=== PATIENT | female | born 1970 | race Caucasian/White ===

== ENCOUNTER → 2020-12-08 | Outpatient (CLI) | payer BC ==
--- NOTE | 2020-12-08 11:20 | Diagnostic Imaging Report ---
INDICATION: Fall, right knee pain. Time of exam: 10:35 AM 3 views of the right knee were obtained. Alignment is normal. Joint spaces are well maintained. Articular surfaces are smooth. No fracture, dislocation or effusion is identified. IMPRESSION: No acute bony abnormality is detected. Dictated by: Dictated on workstation # [id number]
== END ==
LOC: RAD FS 10:22
PROVIDERS: ATTEND Nurse Practitioner
DX: M25.561 Pain in right knee (principal); W19.XXXA Unspecified fall, initial encounter
CPT/HCPCS: 73562

== ENCOUNTER 2021-03-07 21:22 | Emergency (ER) | payer BC ==
[~2021-03-07] VITALS: Ht 160 cm; Wt 59.0 kg
[2021-03-07] MEDS ORDERED: AUGMENTIN 875 MG TAB (AMOXICILLIN/CLAVULANATE) PO STA (22:10)
[2021-03-07] MEDS ORDERED: LIDOCAINE 1% INJ 20 ML 20 ML VIAL INJ STA (22:10)
--- NOTE | 2021-03-07 22:19 | ED Lower Extremity ---
General Chief Complaint: Bite-Animal/Human/Insect Stated Complaint: DOG BITE ON LEG Nursing Triage Note: Pt is awake et alert, brought from waiting room to ER1 per wheelchair. Pt reports that she was bitten by a dog while out on a walk. Pt has open laceration to right ankle. Pressure help with gauze to stop bleeding. Wound irrigated with sterile saline. Source: patient History of Present Illness Date Seen by Provider: Mar 07, 2021 Time Seen by Provider: 21:40 Initial Comments 50 yo female presents with complaint of dog bite to her right lateral leg. She states that she was walking through the [place] area and a dog was barking at her and then came up and bit her leg. She states she is not sure when her last tetanus booster is but is refusing update tonight. She reports that she would want her wound cleaned and would like to just have had a strength butterfly tape applied. She denies allergies to medicines. She has not had problems with that area of the leg before. She has bleeding controlled with pressure. Onset: just prior to arrival Severity: moderate Pain/Injury Location: right leg Method of Injury: other (dog bite) Modifying Factors: Worse With Movement Allergies and Home Medications Allergies Coded Allergies: No Known Drug Allergies (Unverified , 03/07/21) Home Medications Amoxicillin/Potassium Clav 1 Each Tablet, 1 EACH PO BID Prescribed by: KALLI CAMILO on 03/07/21 6187 Patient Home Medication List Home Medication List Reviewed: Yes Review of Systems Constitutional: No chills, No fever EENTM: no symptoms reported Respiratory: no symptoms reported Cardiovascular: no symptoms reported Gastrointestinal: no symptoms reported Genitourinary: no symptoms reported Musculoskeletal: see HPI Skin: see HPI Psychiatric/Neurological: Denies Numbness, Denies Tingling Past Hdubqds-Luewkz-Rogcdg Hx Patient Social History Tobacco Use?: No Smoking Status: Unknown if Ever Smoked Substance use?: No Alcohol Use?: Yes Alcohol Frequency: Rarely Pt feels they are or have been: No Immunizations Up To Date Influenza Vaccine Up-to-Date: No; Not Current First/Initial COVID19 Vaccinat: December 2020 COVID19 Vaccine [employer]acht [employer]: Smadex Physical Exam Vital Signs Vital Signs - First Documented 03/07/21 21:26 Temp 37.6 Pulse 116 Resp 28 B/P (MAP) 136/78 (97) Pulse Ox 95 O2 Delivery Room Air Capillary Refill : Height, Weight, BMI Height: '" Weight: lbs. oz. kg; 23.00 BMI Method: General Appearance: other (anxious and hyperactive) Cardiovascular: normal peripheral pulses Legs: right leg pain, right leg soft tissue tenderness, right leg other (gaping jagged laceration to right lateral lower leg. bleeding controlled with pressure. ) Neurologic/Psychiatric: alert, oriented x 3 Skin: normal color, warm/dry Procedures/Interventions Wound Location: Lower Extremities (lateral right leg 4.6 x 2.2 cm gaping irregular wound) Wound Length (cm): 4.6 Wound's Depth, Shape: irregular, contused tissue, sub Q Wound Explored: contaminated Irrigated w/ Saline (ccs): 500 Betadine Prep?: Yes Anesthesia: 1% Lidocaine Volume Anesthetic (ccs): 10 Suture: Ethlion Suture Size: 3-0 Number of Sutures: 3 Layer Closure?: 1 Sterile Dressing Applied?: Yes Progress After obtaining verbal consent from the patient the wound was anesthetized with 1% plain lidocaine. The 500 mils of saline with Betadine were irrigated through the wound. Then the wound edges were loosely approximated with 3 simple interrupted retaining stitches using 3-0 Ethilon. Patient tolerated procedure well without any immediate complication. Started on Augmentin for wound prophylaxis. Pt refused tetanus booster for now so advised she has up to 72 hours from wound to have that updated. Advised to have stitches removed in 7 to 10 days. Counseled on return and follow-up precautions. Progress/Results/Core Measures Results/Orders My Orders Orders - KALLI CAMILO MD Lidocaine 1% Inj 20 Ml (Xylocaine 1% Inj (03/07/21 22:10) Amoxicillin/Clavulanate Tablet (Augmenti (03/07/21 22:10) Wound Dressing-Ed (03/07/21 22:10) Suture Set At Bedside (03/07/21 22:10) Ice: Apply To Affected Area (03/07/21 23:21) Vital Signs/I&O 03/07/21 03/07/21 21:26 23:28 Temp 37.6 37.2 Pulse 116 116 Resp 28 28 B/P (MAP) 136/78 (97) 136/78 (97) Pulse Ox 95 95 O2 Delivery Room Air Blood Pressure Mean: 97 Progress Progress Note : Progress Note Patient refused tetanus booster but was willing to start prophylactic antibiotics. She was willing to allow the wound to be anesthetized and cleaned with Betadine. After lengthy discussion she was willing to allow stitches to approximate the wound edges and subcu tissue using "butterfly stitches". Counseled on follow-up and return precautions after applying 3 simple interrupted retaining stitches. Departure Impression Primary Impression: Open wound of right lower leg due to dog bite Disposition: HOME, SELF-CARE Condition: Stable Departure-Patient Inst. Decision time for Depature: 23:20 Referrals: SELFDARRYL MD (PCP/Family) Primary Care Physician Patient Instructions: Animal Bites ED, Wound Care ED Add. Discharge Instructions: Follow up with clinic for wound check and to have stitches removed. If you decide to have your Tetanus vaccine booster, it is bed to update it within 72 hours after a new injury. Take a full course of antibiotics to treat for possible infection from bite. Keep wound clean with soap and water but do not soak it All discharge instructions reviewed with patient and/or family. Voiced understanding. Scripts Amoxicillin/Potassium Clav (Amox Tr-K Clv 875-125 mg Tab) 1 Each Tablet 1 EACH PO BID for dog bite for 7 Days, #14 TAB 0 Refills Prov: KALLI CAMILO MD 03/07/21 KALLI CAMILO MD Mar 07, 2021 22:19
[2021-03-07] MEDS ORDERED: AMOX1TAB12 PO (23:21)
[2021-03-07 23:28] VITALS: BP 136/78
== END 2021-03-07 23:28 | disposition home or self-care (01) ==
LOC: EDUNIT# 21:22 → ER FS 21:24
DX: S81.851A Open bite, right lower leg, initial encounter (principal); W54.0XXA Bitten by dog, initial encounter
CPT/HCPCS: 99283

== ENCOUNTER 2021-03-15 09:24 | Emergency (ER) | payer BC ==
[~2021-03-15] VITALS: Ht 160 cm; Wt 65.0 kg
[~2021-03-15 09:24] MED LIST: AMOX1TAB12 PO
[2021-03-15 09:29] VITALS: BP 125/74
--- NOTE | 2021-03-15 10:11 | ED Suture Removal/Wound Check ---
Suture/Wound Re-check General Appearance: WD/WN, no apparent distress Neuro/Tendon: normal sensation, normal motor functions, normal tendon functions Comments Physical Exam Vital Signs Vital Signs - First Documented 03/15/21 09:29 Temp 36.7 Pulse 83 Resp 18 B/P (MAP) 125/74 Pulse Ox 99 O2 Delivery Room Air Capillary Refill : General Appearance: WD/WN, no apparent distress Extremities: other (mild edema left foot w ecchymosis. ) Neurologic/Psychiatric: no motor/sensory deficits Skin: other (Healing laceration (dog bite) R lateral lower leg. Good wound margin approximation but essentially loose and appropriate for a dog bite. No wound discharge, no surrounding erythema, no sign of cellulitis.) Departure Impression Primary Impression: Open wound of right lower leg due to dog bite Additional Impressions: Visit for wound check Encounter for removal of sutures Disposition: 01 HOME, SELF-CARE Condition: Improved Departure-Patient Inst. Decision time for Depature: 10:09 Referrals: SELF,DARRYL MCGILL (PCP/Family) Primary Care Physician Patient Instructions: SUTURE REMOVAL - UNCOMPLICATED, STAPLE REMOVAL - UNCOMPLICATED Add. Discharge Instructions: Follow up with your PCP for any further wound concerns. Avoid "stressing" the wound by putting tension on the skin. Keep steri-strips or other bandage secured to the skin to avoid the wound from opening up. Watch for signs of infection: increased redness, pain, wound drainage or swelling All discharge instructions reviewed with patient and/or family. Voiced understanding. TIM HURLEY DO Mar 15, 2021 10:11
== END 2021-03-15 10:13 | disposition home or self-care (01) ==
LOC: EDUNIT# 09:24 → ER FS 09:28
DX: Z48.02 Encounter for removal of sutures (principal)